=== PATIENT | male | born 1930 | race Caucasian/White ===

== ENCOUNTER 2017-06-26 10:41 | Emergency (ER) | payer MEDICARE ==
[~2017-06-26] VITALS: Ht 147.3 cm; Wt 45.4 kg
[~2017-06-26 10:41] MED LIST: ADOVART PO; ASPI325EC PO; ASPI81CH PO; ATOR20 PO; CALCAVITD PO; CLON.5 PO; DIPY75 PO; DOXA1 PO; GLUCHON PO; HYDACE5 PO; LISI5 PO; METO25ER PO; OMEP20ER PO; OXYACE5T PO; TAMS.4ER PO; [UNRECOGNIZED DRUG - OTHER]; [UNRECOGNIZED DRUG - OTHER]
[2017-06-26] MEDS ORDERED: Cipro250 MG PO (11:08)
[2017-06-26] MEDS ORDERED: TAMS.4ER PO (11:08)
== END 2017-06-26 13:05 | disposition home or self-care (01) ==
LOC: ER 10:41
DX: N41.9 Inflammatory disease of prostate, unspecified (principal); N13.9 Obstructive and reflux uropathy, unspecified; R97.20 Elevated prostate specific antigen [PSA]; Z88.0 Allergy status to penicillin; Z88.5 Allergy status to narcotic agent; Z79.899 Other long term (current) drug therapy; Z79.82 Long term (current) use of aspirin; Z86.73 Personal history of transient ischemic attack (TIA), and cerebral infarction without residual deficits
CPT/HCPCS: 51702; 51798; 99283

== ENCOUNTER 2017-12-01 08:53 | Emergency (ER) | payer MEDICARE ==
[~2017-12-01] VITALS: Ht 162.6 cm; Wt 49.9 kg
[~2017-12-01 08:53] MED LIST changes: +Cipro250 MG PO
[2017-12-01] MEDS ORDERED: ATOR20 PO (09:12)
[2017-12-01 09:52] LABS: Source, Urine Catheter
[2017-12-01 09:56] LABS: Bilirubin, Urine Neg (Neg); Blood, Urine 5+ (Neg); Glucose Qualitative, Urine Neg (Neg); Ketones, Urine Neg (Neg); Leukocyte Esterase, Urine 2+ (Neg); Nitrite, Urine Neg (Neg); Protein, Urine 3+ (Neg); Urobilinogen, Urine NORM (Normal)
[2017-12-01 09:58] LABS: Appearance, Urine Hazy (Clear); Color, Urine Yellow (P-Yellow)
[2017-12-01 10:03] LABS: Red Blood Cells, Urine TNTC /hpf (0-2)
[2017-12-01 10:05] LABS: Amorphous Mod (0-Heavy); Bacteria Many /hpf; Squamous Epithelial Cells Not Seen /hpf (Few)
[2017-12-01 11:14] LABS: BASOPHILS ABSOLUTE AUTO 0.02 K/mm3 (0.00-0.23); BASOPHILS PERCENT AUTO 0 % (0-2); EOSINOPHILS ABSOLUTE AUTO 0.05 K/mm3 (0.00-0.68); EOSINOPHILS PERCENT AUTO 1 % (0-6); Hematocrit 29.9 % (37.0-53.0); Hemoglobin 9.7 g/dL (13.5-17.5); IMMATURE GRAN ABSOLUTE AUTO 0.02 K/mm3 (0.00-0.10); IMMATURE GRAN PERCENT AUTO 0 % (0-1); LYMPHOCYTES ABSOLUTE AUTO 0.68 K/mm3 (0.84-5.20); LYMPHOCYTES PERCENT AUTO 10 % (21-46); MONOCYTES ABSOLUTE AUTO 0.62 K/mm3 (0.16-1.47); MONOCYTES PERCENT AUTO 9 % (4-13); Mean Corpuscular HGB 32.3 pg (26.0-34.0); Mean Corpuscular HGB Conc 32.4 g/dL (31.5-36.5); Mean Corpuscular Volume 100 fL (80-100); Mean Platelet Volume 10.4 fL (9.1-12.4); NEUTROPHILS ABSOLUTE AUTO 5.52 K/mm3 (1.96-9.15); NEUTROPHILS PERCENT AUTO 80 % (41-73); Platelet Count 262 K/mm3 (150-400); RDW Coefficient Variation 14.5 % (11.7-14.2); RDW Standard Deviation 53.1 fL (35.1-46.3); White Blood Cell Count 6.91 K/mm3 (4.00-11.30)
[2017-12-01 11:31] LABS: Anion Gap 7 mmol/L (6-16); Blood Urea Nitrogen 14 mg/dL (8-24); Bun/Creatinine Ratio 19.4 (12.0-20.0); CO2, Blood 27 mmol/L (21-32); Calcium, Blood 8.2 mg/dL (8.5-10.1); Chloride, Blood 107 mmol/L (98-108); Creatinine, Blood 0.72 mg/dL (0.60-1.20); Glomerular Filtration Rate >60 (60-); Glucose, Blood 90 mg/dL (70-99); Potassium, Blood 4.1 mmol/L (3.5-5.5); Sodium, Blood 141 mmol/L (136-145)
[2017-12-01] MEDS ORDERED: Cipro500 MG PO (12:11)
== END 2017-12-01 12:59 | disposition home or self-care (01) ==
LOC: ER 08:53
PROVIDERS: Emergency Medicine
DX: N39.0 Urinary tract infection, site not specified (principal); I10 Essential (primary) hypertension; Z88.0 Allergy status to penicillin; Z88.5 Allergy status to narcotic agent; Z79.899 Other long term (current) drug therapy; Z79.82 Long term (current) use of aspirin; Z86.73 Personal history of transient ischemic attack (TIA), and cerebral infarction without residual deficits
CPT/HCPCS: 36415; 51702; 51798; 80048; 81001; 83605; 85025; 87086; 96360; 99284-25; J7030

== ENCOUNTER 2018-05-15 18:52 | Inpatient (IN) | payer MEDICARE ==
[~2018-05-15] VITALS: Ht 162.6 cm; Wt 49.4 kg
[~2018-05-15 18:52] MED LIST changes: -ASPI81CH PO; +Cipro500 MG PO; +DIPYRIDAMOLE PO; +Lopressor 25 mg25 MG PO; -METO25ER PO
[2018-05-15] MEDS ORDERED: CLON.5 PO (19:03)
[2018-05-15 19:56] LABS: BASOPHILS ABSOLUTE AUTO 0.03 K/mm3 (0.00-0.23); BASOPHILS PERCENT AUTO 0 % (0-2); EOSINOPHILS ABSOLUTE AUTO 0.01 K/mm3 (0.00-0.68); EOSINOPHILS PERCENT AUTO 0 % (0-6); Hemoglobin 8.1 g/dL (13.5-17.5); IMMATURE GRAN ABSOLUTE AUTO 0.04 K/mm3 (0.00-0.10); IMMATURE GRAN PERCENT AUTO 0 % (0-1); LYMPHOCYTES ABSOLUTE AUTO 0.37 K/mm3 (0.84-5.20); LYMPHOCYTES PERCENT AUTO 3 % (21-46); MONOCYTES ABSOLUTE AUTO 0.79 K/mm3 (0.16-1.47); MONOCYTES PERCENT AUTO 6 % (4-13); Mean Corpuscular HGB 30.8 pg (26.0-34.0); Mean Corpuscular HGB Conc 31.2 g/dL (31.5-36.5); Mean Corpuscular Volume 99 fL (80-100); Mean Platelet Volume 9.9 fL (9.1-12.4); NEUTROPHILS ABSOLUTE AUTO 11.78 K/mm3 (1.96-9.15); NEUTROPHILS PERCENT AUTO 91 % (41-73); Platelet Count 332 K/mm3 (150-400); RDW Coefficient Variation 15.2 % (11.7-14.2); RDW Standard Deviation 54.8 fL (35.1-46.3); Red Blood Cell Count 2.63 M/mm3 (4.30-5.90); White Blood Cell Count 13.02 K/mm3 (4.00-11.30)
[2018-05-15 20:16] LABS: Prothrombin Time Results 10.6 Sec (9.7-11.5)
[2018-05-15 20:18] LABS: Alanine Aminotransfer (ALT/SGP 19 U/L (12-78); Albumin, Blood 2.9 g/dL (3.4-5.0); Albumin/Globulin Ratio 0.9 (0.8-1.8); Alk Phos 90 U/L (50-136); Anion Gap 6 mmol/L (6-16); Aspartate Aminotrans (AST/SGOT 14 U/L (12-37); Bilirubin, Total 0.2 mg/dL (0.1-1.0); Blood Urea Nitrogen 27 mg/dL (8-24); Bun/Creatinine Ratio 35.7 (12.0-20.0); CO2, Blood 26 mmol/L (21-32); Calcium, Blood 8.5 mg/dL (8.5-10.1); Chloride, Blood 109 mmol/L (98-108); Creatinine, Blood 0.76 mg/dL (0.60-1.20); Globulin, Blood 3.4 g/dL (2.2-4.0); Glomerular Filtration Rate >60 (60-); Glucose, Blood 119 mg/dL (70-99); Potassium, Blood 3.4 mmol/L (3.5-5.5); Sodium, Blood 141 mmol/L (136-145); Total Protein, Blood 6.3 g/dL (6.4-8.2)
[2018-05-15 20:25] LABS: Source, Urine Catheter
[2018-05-15 20:29] LABS: Appearance, Urine Cloudy (Clear); Bilirubin, Urine Neg (Neg); Blood, Urine 5+ (Neg); Color, Urine Amber (P-Yellow); Glucose Qualitative, Urine Neg (Neg); Ketones, Urine 1+ (Neg); Leukocyte Esterase, Urine 3+ (Neg); Nitrite, Urine Neg (Neg); Protein, Urine 4+ (Neg); Specific Gravity, Urine 1.015 (1.003-1.022); Urobilinogen, Urine NORM (Normal)
[2018-05-15 20:43] LABS: Bacteria Mod /hpf; Red Blood Cells, Urine TNTC /hpf (0-2); Squamous Epithelial Cells Few /hpf (Few); White Blood Cells, Urine 25-50 /hpf (0-5)
[2018-05-15 20:44] LABS: Amorphous Mod (0-Heavy); Triple Phosphate Crystals Mod /hpf
[2018-05-15] MEDS ORDERED: DUTA.5 PO (21:23)
[2018-05-15] MEDS ORDERED: Aspirin EC81 MG PO (21:25)
[2018-05-16 05:02] LABS: Hemoglobin 7.5 g/dL (13.5-17.5); Mean Corpuscular HGB 31.3 pg (26.0-34.0); Mean Corpuscular HGB Conc 31.3 g/dL (31.5-36.5); Mean Corpuscular Volume 100 fL (80-100); Mean Platelet Volume 9.7 fL (9.1-12.4); Platelet Count 261 K/mm3 (150-400); RDW Coefficient Variation 15.2 % (11.7-14.2); RDW Standard Deviation 55.1 fL (35.1-46.3); White Blood Cell Count 8.69 K/mm3 (4.00-11.30)
[2018-05-16 05:28] LABS: Alanine Aminotransfer (ALT/SGP 27 U/L (12-78); Albumin, Blood 2.5 g/dL (3.4-5.0); Albumin/Globulin Ratio 0.9 (0.8-1.8); Alk Phos 79 U/L (50-136); Anion Gap 7 mmol/L (6-16); Aspartate Aminotrans (AST/SGOT 21 U/L (12-37); Bilirubin, Total 0.4 mg/dL (0.1-1.0); Blood Urea Nitrogen 20 mg/dL (8-24); Bun/Creatinine Ratio 32.8 (12.0-20.0); CO2, Blood 22 mmol/L (21-32); Calcium, Blood 7.7 mg/dL (8.5-10.1); Chloride, Blood 114 mmol/L (98-108); Creatinine, Blood 0.61 mg/dL (0.60-1.20); Globulin, Blood 2.9 g/dL (2.2-4.0); Glomerular Filtration Rate >60 (60-); Glucose, Blood 98 mg/dL (70-99); Potassium, Blood 4.2 mmol/L (3.5-5.5); Sodium, Blood 143 mmol/L (136-145); Total Protein, Blood 5.4 g/dL (6.4-8.2)
--- NOTE | 2018-05-16 07:04 | NUR ---
a+o, potassium infused with no s/sx of infection or infiltration, room air, call light in reach able to make needs known, walking rounds completed with day staff.
--- NOTE | 2018-05-16 10:00 | NUR ---
LR BOLUS LR BOLUS STARTED AFTER TALKING TO DR. NUNES ABOUT PT BP DECREASING TO 69 SBP. ORDERED A LR BOLUS TO BE GIVEN NOW ALONG WITH THE PT PRBC. INCREASED MONITORING. PT STATES HE FEELS "FINE" RETAKEN BP OF 79/48. OTHER VITALS STABLE.
--- NOTE | 2018-05-16 13:39 | NUR ---
PT UPDATE PT CONTINUES TO HAVE BLACK STOOL & BLOOD IN THE URINE. DR. POLK CALLED & INFORMED OF THIS. DR. POLK INFORMED OF PT BP. DR. NUNES PLACED ORDER FOR STOOL SAMPLE, LR INFUSION, AND DISCONTINUATION OF MED BLOOD THINNERS. WILL CONTINUE TO MONITOR.
--- NOTE | 2018-05-16 17:21 | NUR ---
SHIFT SUMMARY NO CHANGES IN ASSESSMENT AT THIS TIME. PT CONTINUES TO HAVE SMALL BLACK TARRY STOOLS & BLOOD IN THE URINE. STOOL SAMPLE COLLECTED. PT RECEIVED 1 UNIT OF PRBC & CURRENTLY GETTING 100ML/HR INFUSION OF LR. PT BP INCREASED TO 129/66. VSS. WILL CONTINUE TO MONITOR UNTIL TURNOVER IS COMPLETE.
[2018-05-16 17:38] LABS: Hematocrit 28.1 % (37.0-53.0); Hemoglobin 9.1 g/dL (13.5-17.5)
[2018-05-17 04:55] LABS: Hematocrit 26.1 % (37.0-53.0); Hemoglobin 8.5 g/dL (13.5-17.5); Mean Corpuscular HGB 30.6 pg (26.0-34.0); Mean Corpuscular HGB Conc 32.6 g/dL (31.5-36.5); Mean Platelet Volume 10.1 fL (9.1-12.4); Platelet Count 212 K/mm3 (150-400); RDW Coefficient Variation 16.6 % (11.7-14.2); RDW Standard Deviation 56.3 fL (35.1-46.3); Red Blood Cell Count 2.78 M/mm3 (4.30-5.90); White Blood Cell Count 7.14 K/mm3 (4.00-11.30)
[2018-05-17 04:57] LABS: Mean Corpuscular Volume 94 fL (80-100)
--- NOTE | 2018-05-17 05:32 | NUR ---
SHIFT SUMMARY PT SLEPT WELL. ALERT TO SELF, UNABLE TO ANSWER TO WHERE HE WAS AT OR MONTH AND YEAR. PT NOT UNDERSTANDING QUESTIONS. PT PULLED OUT AC IV. TELE INTACT. PT CHANGED AND REPOSITIONED Q 2HRS AND PER REQUEST. IVF'S INFUSING PER PUMP VIA 2ND IV WITHOUT DIFFICULTY. NO ACUTE EVENTS DURING THE NIGHT, WILL CONTINUE TO MONITOR.
[2018-05-17 07:19] LABS: Stool Occult Blood Guaiac 1 Pos (Neg)
--- NOTE | 2018-05-17 09:03 | NUR ---
CALL TO DR POLK PT HAS NOT REC ANTIBIOTICS SINCE ER, DR POLK WILL ENTER ORDER
--- NOTE | 2018-05-17 17:23 | NUR ---
SHIFT SUMMARY PT HAS HAD NO ACUTE CHANGES THIS SHIFT, NO COMPLAINTS OF ANY KIND. SPOUSE CALLED TO CHECK ON PT STATUS, GAVE HER PH # TO FRANK IN CASE MGMT TO ADDRESS FAMILIES CONCERNS. PT IS BEDRESTING AT THIS TIME, WILL CONT TO MONITOR UNTIL REPORT GIVEN TO STEFF RN.
--- NOTE | 2018-05-17 18:09 | NUR ---
Mr. Chavez is a delightful and gentle man. He was quite chatty and very pleasant. He told me about his stroke a few years ago, and how happy he to have recovered as much as he has. He lives with his and dtr. Dtr provides care for parents. Mr. Chavez feels hopeful he will improve and be able to return home. He is very determined to work with PT to gain strength and endurance. He allowed me to pray for continued healing. He asked me to contact his dtr. However, both #s in records are inaccurate. [facility] services will remain available.
[2018-05-18 04:42] LABS: Hematocrit 26.2 % (37.0-53.0); Hemoglobin 8.4 g/dL (13.5-17.5); Mean Corpuscular HGB Conc 32.1 g/dL (31.5-36.5); Mean Corpuscular Volume 94 fL (80-100); Platelet Count 212 K/mm3 (150-400); White Blood Cell Count 8.14 K/mm3 (4.00-11.30)
--- NOTE | 2018-05-18 04:49 | NUR ---
SHIFT SUMMARY PT HAD UNEVENTFUL NIGHT, NO ACUTE CHANGES NOTED. PT GIVEN BED BATH AND ORAL CARES. CHANGED AND REPOSITIONED T/O NIGHT. WILL CONTINUE TO MONITOR.
--- NOTE | 2018-05-18 09:55 | NUR ---
Met with Dario in his room this morning. He is awake and states he is "Antsy to get out of here." He reports low back discomfort 5/10 "From being in bed." He declines any medication for pain relief at this time. He reports that he has lived a good long life and he doesn't want any aggressive treatments to keep him alive. He reports that he lives with his and daughter and that his wish is to live out the remainder of his life at home enjoying his family. He is currently a DNR and reports that the contact numbers for his and daughter are incorrect in the EMR. He states that they both recently got new cell numbers and he doesn't know their numbers. Discussed AD and POLST forms with him. He states that he has experience with AD, but that he doesn't believe he has a POLST form. He is interested in filling out the POLST form but he would like to do so when his is present. He doesn't have his reading glasses with him. POLST form explained to pt and he wishes to be a DNR with no TF and comfort measures vs. limited interventions. He currently has a DNR order in the EMR. Will wait for his family to visit and then PC will return to help answer questions and assist pt and family in filling out the POLST. Explained to pt that if he didn't fill out the POLST while he is here that he can take it home and have Dr. Hendrickson who is his PCP sign it for him. Dr. Wheeler visited with pt during this customs entry writer's visit. Recommendation from PT is for SNF. Pt states he is willing to go to SNF as long as he doesn't have to live there for the rest of his life. explained to him that rehab is planned for short term, however if Dario decides he doesn't want to stay at rehab he has the option to request to go home. Dario verbalized understanding of this. LM for nursing with update on PC conversation. Requested nursing to contact PC when pt's family arrives.
--- NOTE | 2018-05-18 11:26 | NUR ---
UPDATED CONTACT INFO JUAN RAMON [phone] DAUGHTER RAMOS [phone]
--- NOTE | 2018-05-18 18:23 | NUR ---
SHIFT SUMMARY PT HAS HAD NO ACUTE CHANGES THIS SHIFT, NO BMS, NO COMPLAINTS OF ANY KIND. UP TO BSC 2X W/2 ASSIST AND UP TO CHAIR WITH THERAPY. PT IS BEDRESTING AT THIS TIME, WILL CONT TO MONITOR UNTIL REPORT GIVEN TO STEFF RN.
[2018-05-19 07:52] LABS: Hematocrit 27.7 % (37.0-53.0); Hemoglobin 8.9 g/dL (13.5-17.5)
[2018-05-19] MEDS ORDERED: OMEPRAZOLE MAGN20 MG PO (10:01)
[2018-05-19] MEDS ORDERED: DOXY100 PO (10:01)
--- NOTE | 2018-05-19 11:30 | NUR ---
DISCHARGE NOTE- PT FAMILY CONTACTED AT HIS REQUEST AT THE TIME OF DISCHARGE. CALLED YARA URCKER AND GAVE REPORT TO YAA.
== END 2018-05-19 11:28 | DRG 872 ==
LOC: ER 18:52 → MEDS 21:34 → ER 22:15 → MEDS 22:22 → ER 22:30 → MEDS 05-19 11:28
PROVIDERS: Emergency Medicine; Internal Medicine; ADMIT Internal Medicine
PROC: 30233N1 Transfusion of Nonautologous Red Blood Cells into Peripheral Vein, Percutaneous Approach (ICD-10-PCS; principal; 2018-05-16)
DX: A41.1 Sepsis due to other specified staphylococcus (principal); N39.0 Urinary tract infection, site not specified; G93.40 Encephalopathy, unspecified; D64.9 Anemia, unspecified; I25.10 Atherosclerotic heart disease of native coronary artery without angina pectoris; I10 Essential (primary) hypertension; E86.0 Dehydration; K59.00 Constipation, unspecified; Z66 Do not resuscitate; Z86.73 Personal history of transient ischemic attack (TIA), and cerebral infarction without residual deficits; Z88.5 Allergy status to narcotic agent; Z88.0 Allergy status to penicillin; Z79.899 Other long term (current) drug therapy; Z95.1 Presence of aortocoronary bypass graft
CPT/HCPCS: 36415; 51701; 71046; 80053; 81001; 82272; 83605; 85014; 85018; 85025; 85027; 85610; 85730; 86850; 86900; 86901; 86923; 87040; 87077; 87086; 87186; 93005; 93010; 96361-59; 96365-59; 97116; 97162; 97166; 97530; 97535; 99285-25; C9113; J1650; J1956; J3480; J7030; J7120; P9016

== ENCOUNTER 2018-06-19 12:54 | Observation (INO) | payer MEDICARE ==
[~2018-06-19] VITALS: Ht 147.3 cm; Wt 40.4 kg
[~2018-06-19 12:54] MED LIST changes: +Aspirin EC81 MG PO; +DOXY100 PO; +DUTA.5 PO; +OMEPRAZOLE MAGN20 MG PO
[2018-06-19] MEDS ORDERED: DIPYRIDAMOLE (13:07)
[2018-06-19] MEDS ORDERED: CLON.5 PO ×2 (13:07→15:00)
[2018-06-19] MEDS ORDERED: OMEPRAZOLE CAP 20M (13:08)
[2018-06-19] MEDS ORDERED: METO25 PO ×2 (13:08→18:45)
[2018-06-19 13:40] LABS: BASOPHILS ABSOLUTE AUTO 0.03 K/mm3 (0.00-0.23); BASOPHILS PERCENT AUTO 0 % (0-2); EOSINOPHILS ABSOLUTE AUTO 0.09 K/mm3 (0.00-0.68); EOSINOPHILS PERCENT AUTO 1 % (0-6); Hemoglobin 10.1 g/dL (13.5-17.5); IMMATURE GRAN ABSOLUTE AUTO 0.06 K/mm3 (0.00-0.10); IMMATURE GRAN PERCENT AUTO 1 % (0-1); LYMPHOCYTES PERCENT AUTO 9 % (21-46); MONOCYTES ABSOLUTE AUTO 0.83 K/mm3 (0.16-1.47); MONOCYTES PERCENT AUTO 9 % (4-13); Mean Corpuscular HGB 29.5 pg (26.0-34.0); Mean Corpuscular HGB Conc 30.6 g/dL (31.5-36.5); Mean Corpuscular Volume 97 fL (80-100); Mean Platelet Volume 10.4 fL (9.1-12.4); NEUTROPHILS ABSOLUTE AUTO 7.57 K/mm3 (1.96-9.15); NEUTROPHILS PERCENT AUTO 81 % (41-73); Platelet Count 258 K/mm3 (150-400); RDW Coefficient Variation 15.9 % (11.7-14.2); RDW Standard Deviation 56.9 fL (35.1-46.3); Red Blood Cell Count 3.42 M/mm3 (4.30-5.90); White Blood Cell Count 9.38 K/mm3 (4.00-11.30)
[2018-06-19 13:49] LABS: Alanine Aminotransfer (ALT/SGP 17 U/L (12-78); Albumin, Blood 3.1 g/dL (3.4-5.0); Albumin/Globulin Ratio 0.9 (0.8-1.8); Alk Phos 88 U/L (50-136); Anion Gap 6 mmol/L (6-16); Aspartate Aminotrans (AST/SGOT 21 U/L (12-37); Bilirubin, Total 0.3 mg/dL (0.1-1.0); Blood Urea Nitrogen 21 mg/dL (8-24); Bun/Creatinine Ratio 32.2 (12.0-20.0); CO2, Blood 29 mmol/L (21-32); Calcium, Blood 8.6 mg/dL (8.5-10.1); Chloride, Blood 111 mmol/L (98-108); Creatinine, Blood 0.65 mg/dL (0.60-1.20); Globulin, Blood 3.3 g/dL (2.2-4.0); Glomerular Filtration Rate >60 (60-); Glucose, Blood 108 mg/dL (70-99); Potassium, Blood 3.8 mmol/L (3.5-5.5); Sodium, Blood 146 mmol/L (136-145); Total Protein, Blood 6.4 g/dL (6.4-8.2)
[2018-06-19 13:58] LABS: International Normalized Ratio 0.97; Prothrombin Time Results 10.3 Sec (9.7-11.5)
[2018-06-19] MEDS ORDERED: ATOR20 PO (14:58)
[2018-06-19] MEDS ORDERED: DIPYRIDAMOLE PO (14:58)
[2018-06-19] MEDS ORDERED: TAMS.4ER PO (14:58)
[2018-06-19] MEDS ORDERED: DUTA.5 PO ×2 (14:59)
[2018-06-19] MEDS ORDERED: ASPI81CH PO (14:59)
[2018-06-19] MEDS ORDERED: Ferosul325 MG PO ×2 (15:00→16:37)
[2018-06-19] MEDS ORDERED: IBUP100S PO (16:36)
[2018-06-19] MEDS ORDERED: CALCIUM 600 MG1 EACH PO (16:41)
[2018-06-19 16:48] LABS: Percent Saturation 36.9 % (20.0-50.0)
[2018-06-19] MEDS ORDERED: OMEPRAZOLE MAGN20 MG PO (18:43)
--- NOTE | 2018-06-20 05:02 | NUR ---
88 Y/O MALE NPO SINCE MIDNIGHT FOR SCHEDULED ENDOSCOPY AT 1100. PT ALERT AND ORIENTED X3, DENIES PAIN OR NAUSEA. PT BED ALARM APPLIED, CALL LIGHT AT SIDE, BED IN LOW POSITION.
[2018-06-20 05:44] LABS: BASOPHILS ABSOLUTE AUTO 0.03 K/mm3 (0.00-0.23); BASOPHILS PERCENT AUTO 0 % (0-2); EOSINOPHILS ABSOLUTE AUTO 0.26 K/mm3 (0.00-0.68); EOSINOPHILS PERCENT AUTO 4 % (0-6); Hematocrit 31.1 % (37.0-53.0); Hemoglobin 9.7 g/dL (13.5-17.5); IMMATURE GRAN ABSOLUTE AUTO 0.02 K/mm3 (0.00-0.10); IMMATURE GRAN PERCENT AUTO 0 % (0-1); LYMPHOCYTES ABSOLUTE AUTO 1.06 K/mm3 (0.84-5.20); LYMPHOCYTES PERCENT AUTO 14 % (21-46); MONOCYTES ABSOLUTE AUTO 0.94 K/mm3 (0.16-1.47); MONOCYTES PERCENT AUTO 13 % (4-13); Mean Corpuscular HGB 28.9 pg (26.0-34.0); Mean Corpuscular HGB Conc 31.2 g/dL (31.5-36.5); Mean Platelet Volume 10.7 fL (9.1-12.4); NEUTROPHILS ABSOLUTE AUTO 5.14 K/mm3 (1.96-9.15); NEUTROPHILS PERCENT AUTO 69 % (41-73); Platelet Count 233 K/mm3 (150-400); RDW Coefficient Variation 15.9 % (11.7-14.2); RDW Standard Deviation 53.8 fL (35.1-46.3); Red Blood Cell Count 3.36 M/mm3 (4.30-5.90); White Blood Cell Count 7.45 K/mm3 (4.00-11.30)
[2018-06-20 05:46] LABS: Mean Corpuscular Volume 93 fL (80-100)
[2018-06-20 06:01] LABS: Alanine Aminotransfer (ALT/SGP 16 U/L (12-78); Albumin, Blood 2.9 g/dL (3.4-5.0); Albumin/Globulin Ratio 0.9 (0.8-1.8); Alk Phos 89 U/L (50-136); Anion Gap 6 mmol/L (6-16); Aspartate Aminotrans (AST/SGOT 16 U/L (12-37); Bilirubin, Total 0.7 mg/dL (0.1-1.0); Blood Urea Nitrogen 15 mg/dL (8-24); Bun/Creatinine Ratio 26.6 (12.0-20.0); CO2, Blood 27 mmol/L (21-32); Calcium, Blood 8.7 mg/dL (8.5-10.1); Chloride, Blood 109 mmol/L (98-108); Creatinine, Blood 0.56 mg/dL (0.60-1.20); Globulin, Blood 3.1 g/dL (2.2-4.0); Glomerular Filtration Rate >60 (60-); Glucose, Blood 82 mg/dL (70-99); Magnesium, Blood 2.2 mg/dL (1.6-2.4); Potassium, Blood 3.3 mmol/L (3.5-5.5); Sodium, Blood 142 mmol/L (136-145)
--- NOTE | 2018-06-20 11:18 | NUR ---
06/20/18 1118 Rosa Taylor History, Chart, Medications and Allergies reviewed before start of procedure. PATIENT CONFIRMS NPO STATUS AND AGREES WITH SCHEDULED PROCEDURE. MONITOR INTACT WITH CONTINUOUS PULSE OXIMETRY AND INTERMITTENT BP. O2 VIA N/C INTACT THROUGHOUT SEDATION/PROCEDURE. 3-LEAD EKG REVIEWED WITH PHYSICIAN PRIOR TO START OF PROCEDURE. PATIENT DETERMINED TO BE ASA APPROPRIATE FOR PROPOFOL SEDATION PRIOR TO START OF PROCEDURE BY DR. COLE
--- NOTE | 2018-06-20 11:34 | NUR ---
RETURN CALL TO TO , JUAN RAMON, WITH UPDATE
[2018-06-20 16:22] LABS: Alanine Aminotransfer (ALT/SGP 14 U/L (12-78); Albumin, Blood 2.9 g/dL (3.4-5.0); Albumin/Globulin Ratio 0.9 (0.8-1.8); Alk Phos 91 U/L (50-136); Anion Gap 7 mmol/L (6-16); Aspartate Aminotrans (AST/SGOT 16 U/L (12-37); Bilirubin, Total 0.5 mg/dL (0.1-1.0); Blood Urea Nitrogen 15 mg/dL (8-24); Bun/Creatinine Ratio 25.6 (12.0-20.0); CO2, Blood 26 mmol/L (21-32); Calcium, Blood 8.6 mg/dL (8.5-10.1); Chloride, Blood 106 mmol/L (98-108); Creatinine, Blood 0.59 mg/dL (0.60-1.20); Globulin, Blood 3.3 g/dL (2.2-4.0); Glomerular Filtration Rate >60 (60-); Glucose, Blood 219 mg/dL (70-99); Potassium, Blood 3.2 mmol/L (3.5-5.5); Sodium, Blood 139 mmol/L (136-145); Total Protein, Blood 6.2 g/dL (6.4-8.2)
--- NOTE | 2018-06-20 17:29 | NUR ---
SHIFT SUMMARY PT HAS HAD NO ACUTE CHANGES THIS SHIFT, NO COMPLAINTS OF ANY KIND. PT ASSISTED PT TO CHAIR, MAX 1 ASSIST, PT BEDRESTING SINCE SCOPE, NOTIFIED AFTER PROCEDURE OF PATIENT STATUS, PT APPEARS TO BE SLEEPING AT THIS TIME, WILL CONT TO MONITOR UNTIL REPORT GIVEN TO NOC RN.
[2018-06-21 05:14] LABS: BASOPHILS ABSOLUTE AUTO 0.02 K/mm3 (0.00-0.23); BASOPHILS PERCENT AUTO 0 % (0-2); EOSINOPHILS ABSOLUTE AUTO 0.28 K/mm3 (0.00-0.68); EOSINOPHILS PERCENT AUTO 4 % (0-6); Hematocrit 30.3 % (37.0-53.0); Hemoglobin 9.7 g/dL (13.5-17.5); IMMATURE GRAN ABSOLUTE AUTO 0.02 K/mm3 (0.00-0.10); IMMATURE GRAN PERCENT AUTO 0 % (0-1); LYMPHOCYTES PERCENT AUTO 18 % (21-46); MONOCYTES ABSOLUTE AUTO 1.03 K/mm3 (0.16-1.47); MONOCYTES PERCENT AUTO 13 % (4-13); Mean Platelet Volume 10.3 fL (9.1-12.4); NEUTROPHILS ABSOLUTE AUTO 5.08 K/mm3 (1.96-9.15); NEUTROPHILS PERCENT AUTO 65 % (41-73); Platelet Count 209 K/mm3 (150-400); RDW Coefficient Variation 15.9 % (11.7-14.2); RDW Standard Deviation 52.6 fL (35.1-46.3); Red Blood Cell Count 3.35 M/mm3 (4.30-5.90); White Blood Cell Count 7.83 K/mm3 (4.00-11.30)
[2018-06-21 05:15] LABS: Mean Corpuscular Volume 90 fL (80-100)
--- NOTE | 2018-06-21 05:20 | NUR ---
88 Y/O MALE RESTED COMFORTABLY IN BED ALL EVENING WITH NO C/O PAIN, NAUSEA OR BLEEDING. PT ALERT AND ORIENTED X 3, ABLE TO FOLLOW ALL SIMPLE VERBAL COMMANDS. PTS BED IN LOW POSITION, CALL LIGHT AT SIDE.
--- NOTE | 2018-06-21 14:28 | NUR ---
DR. BERGERON CALLED HE'S REVIEWED PT'S LABS. PT ATE LUNCH AND TOLERATED IT WELL, ALL VITAL SIGNS ARE WNL FOR THIS PT. DR. STARKS CHOOSES TO NOT ROUND ON THE PT TODAY BASED ON THAT AND LEAVES THE DECISION WHEN TO DC THE PT UP TO THE HOSPITALIST.
--- NOTE | 2018-06-21 17:50 | NUR ---
DISCHARGE NOTE IV DC'D WNL. PERSONAL BELONGINGS GIVEN TO PT. HANDOFF REPORT CALLED TO [facility]. NURSE LUIS ANTONIO HAD NO FURTHER QUESTIONS. PT TRANSPORTED VIA WHEELCHAIR, WITH ASSIST FROM [facility]. PT'S CALLED AND INFORMED OF THE TRANSFER. PT AND FAMILY HAD NO FURTHER QUESTIONS. DISCHARGE INFORMATION AND MEDICATIONS FAXED TO [facility].
== END 2018-06-21 17:48 ==
LOC: ER 12:54 → MEDS 12:55 → ER 15:53 → MEDS 18:02
PROVIDERS: Emergency Medicine; Internal Medicine Gastroenterology; ADMIT Internal Medicine
PROC: 0DB38ZX Excision of Lower Esophagus, Via Natural or Artificial Opening Endoscopic, Diagnostic (ICD-10-PCS; principal; 2018-06-20 11:00)
DX: K20.9 Esophagitis, unspecified (principal); K44.9 Diaphragmatic hernia without obstruction or gangrene; K92.1 Melena; D64.9 Anemia, unspecified; I25.10 Atherosclerotic heart disease of native coronary artery without angina pectoris; E87.0 Hyperosmolality and hypernatremia; I10 Essential (primary) hypertension; E78.5 Hyperlipidemia, unspecified; Z95.5 Presence of coronary angioplasty implant and graft; Z79.82 Long term (current) use of aspirin; Z86.73 Personal history of transient ischemic attack (TIA), and cerebral infarction without residual deficits; Z79.899 Other long term (current) drug therapy; Z88.0 Allergy status to penicillin; Z88.5 Allergy status to narcotic agent
CPT/HCPCS: 36415; 72100; 80053; 82272; 82306; 82728; 83540; 83550; 83735; 85025; 85610; 86850; 86900; 86901; 88305; 97110; 97162; 97530; 99285-25; J2704; J7030; J7120

== ENCOUNTER → 2018-08-29 | Outpatient (CLI) | payer MEDICARE ==
[~2018-08-29] MED LIST changes: +ASPERCREME1 EACH TOP; +ASPI81CH PO; +Avodart0.5 MG GT; +BISA10S PR; +CALCIUM 600 MG1 EACH PO; +DIPYRIDAMOLE; +Docusate Sodiu1 EACH PO; +Ferosul325 MG PO; +HYOS.125 PO; +HYOS.125 SL; +IBUP100S PO; +LORA1 PO; +METO25; +METO25 PO; +MORP20ER PO; +MORP20L SL; +Milk Of Ma400 MG/5 M PO; +OMEPRAZOLE CAP 20M; +POTA10T PO; +POTA8 PO; +TAMSULOSIN HCL0.4 MG PO; +TRAM50 PO; +[UNRECOGNIZED DRUG - OTHER] PO
[2018-08-29 12:23] LABS: Source, Urine Clean Catch
[2018-08-29 13:08] LABS: Blood, Urine 5+ (Neg); Glucose Qualitative, Urine Neg (Neg); Ketones, Urine Neg (Neg); Leukocyte Esterase, Urine 3+ (Neg); Nitrite, Urine Pos (Neg); Protein, Urine 3+ (Neg); Specific Gravity, Urine 1.015 (1.003-1.022); Urobilinogen, Urine NORM (Normal)
[2018-08-29 13:30] LABS: Appearance, Urine Hazy (Clear); Color, Urine Yellow (P-Yellow)
[2018-08-29 13:31] LABS: Bilirubin, Urine 1+ (Neg)
[2018-08-29 13:56] LABS: Bacteria Many /hpf; Red Blood Cells, Urine TNTC /hpf (0-2); Squamous Epithelial Cells Few /hpf (Few)
[2018-08-29 13:59] LABS: Amorphous Light ({null, 0-Heavy}); Triple Phosphate Crystals Mod /hpf
== END ==
LOC: LAB 11:50 → LAB SHORT 11:50
PROVIDERS: Nurse Practitioner
DX: N39.0 Urinary tract infection, site not specified (principal)
CPT/HCPCS: 81001; 87077; 87086; 87186

== ENCOUNTER → 2018-09-19 | Outpatient (CLI) | payer OTHER, MEDICARE ==
[2018-09-19 15:00] LABS: Bilirubin, Urine Neg (Neg); Blood, Urine 5+ (Neg); Glucose Qualitative, Urine Neg (Neg); Ketones, Urine Neg (Neg); Leukocyte Esterase, Urine 3+ (Neg); Nitrite, Urine Neg (Neg); Protein, Urine 3+ (Neg); Specific Gravity, Urine 1.015 (1.003-1.022); Urobilinogen, Urine NORM (Normal)
[2018-09-19 15:15] LABS: Appearance, Urine Turbid (Clear); Color, Urine Brown (P-Yellow)
[2018-09-19 15:16] LABS: Bacteria Many /hpf; Red Blood Cells, Urine TNTC /hpf (0-2); Squamous Epithelial Cells Not Seen /hpf (Few); Triple Phosphate Crystals Rare /hpf
== END ==
LOC: LAB SHORT 13:04 → LAB 13:04
PROVIDERS: Nurse Practitioner
DX: N39.0 Urinary tract infection, site not specified (principal)
CPT/HCPCS: 81001; 87077; 87086; 87186

== ENCOUNTER 2018-09-25 14:13 | Observation (INO) | payer OTHER, MEDICARE ==
[~2018-09-25] VITALS: Ht 165.1 cm; Wt 42.1 kg
[~2018-09-25 14:13] MED LIST changes: -ASPERCREME1 EACH TOP; -Avodart0.5 MG GT; -BISA10S PR; -Docusate Sodiu1 EACH PO; -HYOS.125 PO; -HYOS.125 SL; -LORA1 PO; -METO25; -MORP20ER PO; -MORP20L SL; -Milk Of Ma400 MG/5 M PO; -POTA10T PO; -POTA8 PO; -TAMSULOSIN HCL0.4 MG PO; -TRAM50 PO; -[UNRECOGNIZED DRUG - OTHER] PO
[2018-09-25] MEDS ORDERED: Avodart0.5 MG GT (16:30)
[2018-09-25] MEDS ORDERED: BISA10S PR ×2 (16:30→16:47)
[2018-09-25] MEDS ORDERED: CLON.5 PO ×2 (16:31→16:48)
[2018-09-25] MEDS ORDERED: TAMS.4ER PO ×2 (16:31→19:58)
[2018-09-25] MEDS ORDERED: [UNRECOGNIZED DRUG - OTHER] PO (16:31)
[2018-09-25] MEDS ORDERED: LORA1 PO ×2 (16:32→16:51)
[2018-09-25] MEDS ORDERED: HYOS.125 PO (16:32)
[2018-09-25] MEDS ORDERED: MORP20ER PO (16:32)
[2018-09-25] MEDS ORDERED: METO25 (16:32)
[2018-09-25] MEDS ORDERED: POTA8 PO (16:33)
[2018-09-25] MEDS ORDERED: OMEP20ER PO ×2 (16:33→16:43)
[2018-09-25] MEDS ORDERED: Milk Of Ma400 MG/5 M PO (16:38)
[2018-09-25] MEDS ORDERED: METO25 PO (16:38)
[2018-09-25] MEDS ORDERED: MORP20L SL (16:43)
[2018-09-25] MEDS ORDERED: POTA10T PO (16:44)
[2018-09-25] MEDS ORDERED: ASPERCREME1 EACH TOP (16:45)
[2018-09-25] MEDS ORDERED: TRAM50 PO ×2 (16:46→19:58)
[2018-09-25] MEDS ORDERED: Docusate Sodiu1 EACH PO (16:46)
[2018-09-25] MEDS ORDERED: DUTA.5 PO (16:47)
[2018-09-25] MEDS ORDERED: DIPYRIDAMOLE PO (16:49)
[2018-09-25] MEDS ORDERED: TAMSULOSIN HCL0.4 MG PO (16:50)
[2018-09-25] MEDS ORDERED: HYOS.125 SL (16:51)
[2018-09-25] MEDS ORDERED: ATOR20 PO (19:57)
[2018-09-25] MEDS ORDERED: Ferosul325 MG PO (19:57)
--- NOTE | 2018-09-25 23:29 | NUR ---
PT POA AND DAUGHTER, RAMOS, STATES THAT KRISTINE DOES NOT WISH TO BE PUT IN A SNF FOR THE ABX TREATMENT. HH IS THE PREFERRED OPTION. WILL PASS THIS ON IN REPORT.
--- NOTE | 2018-09-26 04:55 | NUR ---
SHIFT SUMMARY PT NEW ER ADMIT THIS SHIFT. PT PRESENTS WITH UTI, AND STRICTLY BEING TREATED c IV ABX ONLY. NO OTHER TREATMENTS TO TAKE PLACE PT IS ON HOSPICE. PLAN IS TO PLACE PICC LINE OR PG SO PT CAN RECIEVE 7-10 DAYS OF IV ABX VIA HH. PT IS BEDRIDDEN, Q2H TURNS COMPLETE. A&O TO PLACE, DATE/TIME, EVENT. SPEECH IS NONSENSICAL AT TIMES AND PT IS FORGETFUL. 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 CONDOM CATH IN PLACE IS DRAINING RED, SEDIMENT URINE. PT IS RESTING IN BED AT THIS TIME, CALL LT IN REACH. WILL CONT TO MONITOR AND PROVIDE CARE UNTIL PRESUMED BY ONCOMING RN.
--- NOTE | 2018-09-26 12:53 | NUR ---
Upon receiving a spiritual care referral, I visited with patient. Patient looked at me but did not answer any questions that I asked. I do not know if he is deliberately not answering or if he has physical or mental limitations that prevent him from speaking with me, but all my attempts to connect or engage patient, failed. I observed in patient's chart that he communicated enough to let staff know that he is aware to person and place and that somehow the information was gathered that he has a islam preference of Baptism. So without even getting a confirmation that I could pray for him, I refrained. I will continue to remain available to patient and family.
--- NOTE | 2018-09-26 14:00 | NUR ---
Assessment of symptoms and symptom managment. Pt appears to be very comfortable. Orders for discharge with resumption of hospice in the chart. Pt's respirations are below 20, does not appear to be in any pain. Renée, bender hand, is bedside on palliative arrival to room. Renée states that the pt is really unable to stay awake. Discussed plan to discharge today and orders are in the computer already. There is no family at bedside. Pt does not need additional medications at this time, due to assessment negative of bothersome symptoms. Will remain available.
--- NOTE | 2018-09-26 14:41 | NUR ---
PATIENT TO DISCHARGE HOME VIA [facility]NY. PATIENT HAS SLEPT MUCH OF SHIFT. VERY TELLER. IV REMOVED.
--- NOTE | 2018-09-26 14:50 | NUR ---
PATIENT HAS BEEN COUGHING WHEN EATING. DR. HERNANDEZED ADVANCED DIET TOLERATED. STATED IT IS OKAY TO HOLD HOME MEDICATIONS DUE TO PATIENT DISCHARGING HOME TODAY TO RESUME HOSPICE. PATIENT CURRENTLY SLEEPING. WILL TRANSPORT VIA [employer].
--- NOTE | 2018-09-26 15:20 | NUR ---
[facility] Spiritual Care note: Mr. Chavez was alone in room. He appears frail and quite sleepy. He awakend to voice and held my hand. He agreed to prayer, and drifted off to sleep. He is being dc'd soon.
== END 2018-09-26 15:25 | disposition hospice, home (50) ==
LOC: ER 14:13 → MEDS 18:46 → ENPENDDIS 09-26 10:35 → MEDS 09-26 15:25
PROVIDERS: ADMIT Hospitalist
DX: N39.0 Urinary tract infection, site not specified (principal); B96.5 Pseudomonas (aeruginosa) (mallei) (pseudomallei) as the cause of diseases classified elsewhere; D64.9 Anemia, unspecified; I25.10 Atherosclerotic heart disease of native coronary artery without angina pectoris; K92.2 Gastrointestinal hemorrhage, unspecified; E78.5 Hyperlipidemia, unspecified; Z79.899 Other long term (current) drug therapy; Z88.0 Allergy status to penicillin; Z88.5 Allergy status to narcotic agent; Z95.5 Presence of coronary angioplasty implant and graft
CPT/HCPCS: 96361; 96365; 96376; 99285-25; G0378; J0713; J7030